=== PATIENT | male | born 1960 | race Caucasian/White ===

== ENCOUNTER 2017-04-11 13:59 | Emergency (ER) | payer OTHER ==
[~2017-04-11] VITALS: Ht 188 cm; Wt 98.1 kg
[~2017-04-11 13:59] MED LIST: ZESTRIL10 MG PO
[2017-04-11 16:22] LABS: BASOPHIL COUNT 0.1 K/uL (0-0.1); EOSINOPHIL (%) 0.1 % (0-5); HEMATOCRIT 43.7 % (38.0-50.0); IMMATURE GRANULOCYTE (%) 0.3 % (0.0-0.7); INSTRUMENT ABS NEUTROPHIL CT 11.7 K/uL; LYMPHOCYTE COUNT 0.8 K/uL (1.0-2.8); MCH 32.4 PG (29.0-34.0); MCHC 34.3 G/DL (30.0-36.0); MCV 94.4 FL (86-99); MEAN PLAT.VOLUME 9.8 uM^3 (9.0-12.4); MONOCYTE (%) 4.5 % (3-12); MONOCYTE COUNT 0.6 K/uL (0-0.8); NEUTROPHIL (%) 88.4 % (45-76); NEUTROPHIL COUNT 11.7 K/uL (1.8-6.4); PLATELET COUNT 285 K/uL (156-360); RBC DIS.WIDTH-CV 11.2 % (11.8-14.6); RBC DIS.WIDTH-SD 38.8 % (39-53); RED BLOOD COUNT 4.63 M/uL (4.00-5.50); WHITE BLOOD COUNT 13.2 K/uL (4.1-10.2)
[2017-04-11 16:30] LABS: CHLORIDE 102 mEq/L (99-109); POTASSIUM 4.6 mEq/L (3.7-5.4); SODIUM 138 mEq/L (136-147)
[2017-04-11 16:32] LABS: GLUCOSE 121 mg/dL (70-99)
[2017-04-11 16:33] LABS: ANION GAP 10 MEQ/L (2-14)
[2017-04-11 16:35] LABS: GFR ESTIMATE (CALCULATED) > 59 mL/min/
[2017-04-11 16:36] LABS: UREA NITROGEN (BUN) 14 mg/dL (9-23)
[2017-04-11 16:52] LABS: ADD MIUA? YES; BILIRUBIN NEGATIVE; BLOOD NEGATIVE; COLOR YELLOW ((YELLOW)); GLUCOSE (STRIP) NEGATIVE; KETONES NEGATIVE; LEUKOCYTES NEGATIVE; NITRITE NEGATIVE; PROTEIN (STRIP) NEGATIVE; SPECIFIC GRAVITY 1.017 (1.000-1.030); UROBILINOGEN 0.2 MG/DL (0.2-1.0)
[2017-04-11 16:58] LABS: BACTERIA NONE SEEN /HPF; EPITHELIAL CELLS RARE /HPF; MUCUS 2+ /LPF; RED BLOOD CELLS 0-5 /HPF (0-5); WHITE BLOOD CELLS 0-5 /HPF (0-5)
[2017-04-11] MEDS ORDERED: PERCOCET 5/31 TABLET PO (17:43)
[2017-04-11] MEDS ORDERED: FLOMAX0.4 MG PO (17:44)
[2017-04-11] MEDS ORDERED: ZOFRAN4 MG PO (17:44)
[2017-04-11 18:08] VITALS: BP 145/70
== END 2017-04-11 18:11 | disposition home or self-care (01) ==
LOC: EME 13:59
PROVIDERS: Emergency Medicine
DX: N13.2 Hydronephrosis with renal and ureteral calculous obstruction (principal); R11.2 Nausea with vomiting, unspecified; I10 Essential (primary) hypertension
CPT/HCPCS: 74176; 80048; 81003; 85025; 87086; 99281; 99283